=== PATIENT | female | born 1990 | race Two or more races ===

== ENCOUNTER 2023-10-09 03:55 | Inpatient (IN) | payer OTHER ==
[~2023-10-09] VITALS: Ht 170.2 cm; Wt 62.6 kg
[2023-10-09] MEDS ORDERED: RINGERS SOLUTION,LACTATED 1,000 ML IV SCH (04:15)
[2023-10-09] MEDS ORDERED: PRENATAL CAPLE1 EAC1 PO (06:01)
[2023-10-09] MEDS ORDERED: FOLIC ACID0.8 M1 PO (06:01)
[2023-10-09 06:21] LABS: PH,URINE 6.5 (5.0-8.0); URINE APPEARANCE Cloudy; URINE BILIRRUBIN Negative (NEGATIVE); URINE BLOOD Negative; URINE COLOR Yellow; URINE GLUCOSE Negative (NEGATIVE); URINE LEUKOCYTE Trace; URINE NITRATE Negative
[2023-10-09 06:24] LABS: URINE BACTERIA 613.6 uL (0.0-1933); URINE EPITHELIAL CELLS 54.1 uL (0.0-38.8); URINE RBC 13.5 uL (0.0-20.8); URINE WBC 40.6 uL (0.0-23.2)
[2023-10-09 06:26] LABS: HEMATOCRIT 28.2 % (36.0-45.00); HEMOGLOBIN 10.1 g/dL (12.0-15.00); MEAN CELL VOLUME 89.7 fL (80.00-100.00); MEAN CORPUSCULAR HEMOGLOBIN 32.2 pg (27.00-32.0); MEAN CORPUSCULAR HGB CONC 35.9 g/dl (32.0-36.0); PLATELET COUNT 170 K/uL (150-450); RED BLOOD COUNT 3.14 M/uL (4.00-6.00); RED CELL DISTRIBUTION WIDTH 12.4 % (11.5-14.5)
[2023-10-09 06:46] LABS: URINE PROTEIN 300 (NEGATIVE)
[2023-10-09 06:47] LABS: URINE YEAST FEW /hpf
[2023-10-09 06:59] LABS: ALBUMIN 2.7 gm/dL (3.4-5.0); BILIRUBIN TOTAL 0.25 mg/dL (0.3-1.2); CALCIUM 8.5 mg/dL (8.5-10.1); CREATININE SERUM 0.51 mg/dL (0.55-1.02); GFR 138.88; GLOBULINA 3.5 G/DL (2.4-3.5); POTASSIUM 3.74 mEq/L (3.5-5.1); TOTAL PROTEIN 6.2 gm/dL (6.4-8.2)
[2023-10-09] MEDS ORDERED: AMPICILLIN SODIUM 2,000 MG VIAL ONE (07:51)
[2023-10-09] MEDS ORDERED: BETAMETHASONE ACETATE,SOD PHOS 30 MG/5 ML ML ONE (07:53)
[2023-10-09 08:08] LABS: ABG PH 7.456 (7.35-7.45); ABG pCO2 30.2 mmHg (35-45); SaO2 98.2 %
[2023-10-09 08:09] LABS: BASE EXCESS -1.8 mmol/l; BICARBONATE 20.8 mmol/l (23-25); Tco2 21.8 mmol/l; allen test SATISFACTORY; o2 21 %; puncture site RADIAL LEFT
[2023-10-09] MEDS ORDERED: BETAMETHASONE ACETATE,SOD PHOS 30 MG/5 ML ML IM SCH (09:30)
[2023-10-09] MEDS ORDERED: AMPICILLIN SODIUM 2,000 MG in 0.9 % SODIUM CHLORIDE 100 ML IV SCH (09:30)
[2023-10-09 10:03] LABS: INR 0.95; PARTIAL THROMBOPLASTIN TIME 25.8 SECONDS (22.0-34.0)
[2023-10-10 08:59] LABS: URINE PROT QUANT 24HR 11.6 MG/DL
[2023-10-10 09:02] LABS: URINE PROT QUANT 24 HR 330.6 MG/24HR (42-225)
[2023-10-10] MEDS ORDERED: AMPICILLIN SODIUM 2,000 MG VIAL ONE (13:28)
[2023-10-11] MEDS ORDERED: TERCONAZOLE 45 GM TUBE VAG SCH (09:00)
[2023-10-12] MEDS ORDERED: AMPICILLIN SODIUM 2,000 MG VIAL ONE (20:33)
[2023-10-12] MEDS ORDERED: AMPICILLIN SODIUM 2,000 MG in 0.9 % SODIUM CHLORIDE 100 ML IV SCH (20:45)
[2023-10-12] MEDS ORDERED: AZITHROMYCIN 500 MG VIAL IV SCH (22:25)
[2023-10-12] MEDS ORDERED: AZITHROMYCIN 500 MG VIAL IV STA (22:25)
[2023-10-13] MEDS ORDERED: AMPICILLIN SODIUM 2,000 MG VIAL ONE (02:44)
[2023-10-13 06:56] LABS: HEMATOCRIT 27.6 % (36.0-45.00); HEMOGLOBIN 9.9 g/dL (12.0-15.00); MEAN CELL VOLUME 89.5 fL (80.00-100.00); MEAN CORPUSCULAR HGB CONC 35.8 g/dl (32.0-36.0); PLATELET COUNT 208 K/uL (150-450); RED BLOOD COUNT 3.09 M/uL (4.00-6.00); RED CELL DISTRIBUTION WIDTH 12.2 % (11.5-14.5)
[2023-10-13 07:10] LABS: ALBUMIN 2.4 gm/dL (3.4-5.0); BILIRUBIN TOTAL 0.3 mg/dL (0.3-1.2); CALCIUM 8.7 mg/dL (8.5-10.1); CREATININE SERUM 0.43 mg/dL (0.55-1.02); GFR 169.1; GLOBULINA 3.5 G/DL (2.4-3.5); POTASSIUM 3.64 mEq/L (3.5-5.1); TOTAL PROTEIN 5.9 gm/dL (6.4-8.2)
[2023-10-13] MEDS ORDERED: FERROUS SULFATE 325 MG TABLET.EC PO SCH (18:15)
[2023-10-15 10:59] LABS: PH,URINE 7.5 (5.0-8.0); URINE APPEARANCE Clear; URINE BILIRRUBIN Negative (NEGATIVE); URINE BLOOD Negative; URINE COLOR Yellow; URINE GLUCOSE Negative (NEGATIVE); URINE LEUKOCYTE Negative; URINE NITRATE Negative; URINE PROTEIN Negative (NEGATIVE); URINE UROBILINOGEN 0.2 E.U./dl
[2023-10-15 11:00] LABS: URINE EPITHELIAL CELLS 10.3 uL (0.0-38.8); URINE WBC 4.3 uL (0.0-23.2)
[2023-10-15 11:01] LABS: HEMATOCRIT 28.8 % (36.0-45.00); HEMOGLOBIN 10.2 g/dL (12.0-15.00); MEAN CELL VOLUME 88.8 fL (80.00-100.00); MEAN CORPUSCULAR HEMOGLOBIN 31.3 pg (27.00-32.0); MEAN CORPUSCULAR HGB CONC 35.2 g/dl (32.0-36.0); PLATELET COUNT 240 K/uL (150-450); RED BLOOD COUNT 3.25 M/uL (4.00-6.00); RED CELL DISTRIBUTION WIDTH 12.3 % (11.5-14.5)
[2023-10-15 11:12] LABS: URINE RBC 0.8 uL (0.0-20.8)
[2023-10-15 11:31] LABS: ALBUMIN 2.6 gm/dL (3.4-5.0); BILIRUBIN TOTAL 0.31 mg/dL (0.3-1.2); CREATININE SERUM 0.41 mg/dL (0.55-1.02); GFR 178.66; GLOBULINA 3.7 G/DL (2.4-3.5); POTASSIUM 4.15 mEq/L (3.5-5.1); TOTAL PROTEIN 6.3 gm/dL (6.4-8.2)
[2023-10-15 11:35] LABS: INR 0.97; PARTIAL THROMBOPLASTIN TIME 22.2 SECONDS (22.0-34.0); PROTHROMBIN TIME 10.2 SECONDS (9.0-11.5)
[2023-10-16] MEDS ORDERED: AZITHROMYCIN 500 MG TABLET PO ONE (16:00)
[2023-10-16] MEDS ORDERED: LABETALOL HCL 200 MG TABLET PO SCH (17:00)
[2023-10-16] MEDS ORDERED: AMOXICILLIN 500 MG CAPSULE PO SCH (21:00)
[2023-10-23 06:58] LABS: HEMATOCRIT 26.9 % (36.0-45.00); HEMOGLOBIN 9.6 g/dL (12.0-15.00); MEAN CELL VOLUME 90.2 fL (80.00-100.00); MEAN CORPUSCULAR HGB CONC 35.5 g/dl (32.0-36.0); PLATELET COUNT 197 K/uL (150-450); RED BLOOD COUNT 2.99 M/uL (4.00-6.00); RED CELL DISTRIBUTION WIDTH 13.3 % (11.5-14.5)
[2023-10-23 07:13] LABS: ALBUMIN 2.5 gm/dL (3.4-5.0); BILIRUBIN TOTAL 0.32 mg/dL (0.3-1.2); CALCIUM 8.6 mg/dL (8.5-10.1); CREATININE SERUM 0.37 mg/dL (0.55-1.02); GFR 201.13; GLOBULINA 3.3 G/DL (2.4-3.5); POTASSIUM 3.71 mEq/L (3.5-5.1); TOTAL PROTEIN 5.8 gm/dL (6.4-8.2)
[2023-10-25 10:21] LABS: HEMATOCRIT 29.5 % (36.0-45.00); HEMOGLOBIN 10.4 g/dL (12.0-15.00); MEAN CELL VOLUME 90.8 fL (80.00-100.00); MEAN CORPUSCULAR HGB CONC 35.2 g/dl (32.0-36.0); PLATELET COUNT 218 K/uL (150-450); RED BLOOD COUNT 3.25 M/uL (4.00-6.00); RED CELL DISTRIBUTION WIDTH 13.4 % (11.5-14.5)
[2023-10-25 10:36] LABS: INR 0.95; PARTIAL THROMBOPLASTIN TIME 21.7 SECONDS (22.0-34.0)
[2023-10-25 10:42] LABS: ALBUMIN 2.8 gm/dL (3.4-5.0); BILIRUBIN TOTAL 0.35 mg/dL (0.3-1.2); CALCIUM 9.4 mg/dL (8.5-10.1); CREATININE SERUM 0.4 mg/dL (0.55-1.02); GFR 183.82; GLOBULINA 3.4 G/DL (2.4-3.5); POTASSIUM 4.3 mEq/L (3.5-5.1); TOTAL PROTEIN 6.2 gm/dL (6.4-8.2)
[2023-10-25 11:33] LABS: URINE APPEARANCE Clear; URINE BILIRRUBIN Negative (NEGATIVE); URINE BLOOD Negative; URINE COLOR Yellow; URINE GLUCOSE Negative (NEGATIVE); URINE LEUKOCYTE Negative; URINE NITRATE Negative; URINE PROTEIN Negative (NEGATIVE); URINE UROBILINOGEN 0.2 E.U./dl
[2023-10-25 11:34] LABS: URINE BACTERIA 22.6 uL (0.0-1933); URINE EPITHELIAL CELLS 8.6 uL (0.0-38.8); URINE WBC 4.3 uL (0.0-23.2)
[2023-10-25 11:50] LABS: URINE RBC 0.8 uL (0.0-20.8)
[2023-10-26] MEDS ORDERED: DOCUSATE SODIUM 100MG CAP PO SCH (10:09)
[2023-10-30] MEDS ORDERED: DOCUSATE SODIUM 100MG CAP PO SCH (11:58)
[2023-10-30 13:56] LABS: HEMOGLOBIN 10.6 g/dL (12.0-15.00); MEAN CELL VOLUME 90.1 fL (80.00-100.00); MEAN CORPUSCULAR HEMOGLOBIN 31.8 pg (27.00-32.0); MEAN CORPUSCULAR HGB CONC 35.3 g/dl (32.0-36.0); PLATELET COUNT 195 K/uL (150-450); RED BLOOD COUNT 3.32 M/uL (4.00-6.00); RED CELL DISTRIBUTION WIDTH 14.2 % (11.5-14.5)
[2023-10-30 14:21] LABS: ALBUMIN 2.8 gm/dL (3.4-5.0); BILIRUBIN TOTAL 0.34 mg/dL (0.3-1.2); CALCIUM 9.2 mg/dL (8.5-10.1); CREATININE SERUM 0.37 mg/dL (0.55-1.02); GFR 201.13; GLOBULINA 3.7 G/DL (2.4-3.5); POTASSIUM 3.8 mEq/L (3.5-5.1); TOTAL PROTEIN 6.5 gm/dL (6.4-8.2)
[2023-10-30 14:24] LABS: INR 0.94; PARTIAL THROMBOPLASTIN TIME 23.3 SECONDS (22.0-34.0)
[2023-10-30 14:26] LABS: PROTHROMBIN TIME 9.9 SECONDS (9.0-11.5)
[2023-10-30 17:46] LABS: PH,URINE 7.5 (5.0-8.0); URINE APPEARANCE Clear; URINE BILIRRUBIN Negative (NEGATIVE); URINE COLOR Yellow; URINE GLUCOSE Negative (NEGATIVE); URINE LEUKOCYTE Negative; URINE NITRATE Negative; URINE PROTEIN Negative (NEGATIVE)
[2023-10-30 17:47] LABS: URINE BACTERIA 159.9 uL (0.0-1933); URINE EPITHELIAL CELLS 24.8 uL (0.0-38.8); URINE RBC 7.4 uL (0.0-20.8); URINE WBC 17.2 uL (0.0-23.2)
[2023-10-30 17:50] LABS: URINE BLOOD Traces
[2023-10-31] MEDS ORDERED: SOD FERRIC GLUC COMPLX/SUCROSE 62.5 MG/5 ML AMPUL IV SCH (10:26)
[2023-10-31] MEDS ORDERED: MULTIVIT INFUSN,ADULT 4,VIT K 10 ML VIAL IV SCH (10:31)
[2023-11-01] MEDS ORDERED: SOD FERRIC GLUC COMPLX/SUCROSE 62.5 MG/5 ML AMPUL IV SCH (09:00)
[2023-11-03] MEDS ORDERED: SOD FERRIC GLUC COMPLX/SUCROSE 62.5 MG/5 ML AMPUL IV ONE (09:15)
[2023-11-04] MEDS ORDERED: DOCUSATE SODIUM 100MG CAP PO SCH (09:00)
[2023-11-04 11:04] LABS: HEMATOCRIT 32.3 % (36.0-45.00); HEMOGLOBIN 11.1 g/dL (12.0-15.00); MEAN CELL VOLUME 90.9 fL (80.00-100.00); MEAN CORPUSCULAR HEMOGLOBIN 31.2 pg (27.00-32.0); MEAN CORPUSCULAR HGB CONC 34.3 g/dl (32.0-36.0); PLATELET COUNT 180 K/uL (150-450); RED BLOOD COUNT 3.56 M/uL (4.00-6.00); RED CELL DISTRIBUTION WIDTH 14.1 % (11.5-14.5)
[2023-11-04 11:22] LABS: ALBUMIN 2.7 gm/dL (3.4-5.0); BILIRUBIN TOTAL 0.26 mg/dL (0.3-1.2); CALCIUM 8.9 mg/dL (8.5-10.1); CREATININE SERUM 0.32 mg/dL (0.55-1.02); GFR 237.81; GLOBULINA 3.6 G/DL (2.4-3.5); POTASSIUM 3.44 mEq/L (3.5-5.1); TOTAL PROTEIN 6.3 gm/dL (6.4-8.2)
[2023-11-04 12:44] LABS: URINE APPEARANCE Clear; URINE BACTERIA 565.7 uL (0.0-1933); URINE BILIRRUBIN Negative (NEGATIVE); URINE BLOOD Small; URINE COLOR Yellow; URINE EPITHELIAL CELLS 32.7 uL (0.0-38.8); URINE GLUCOSE Negative (NEGATIVE); URINE LEUKOCYTE Negative; URINE NITRATE Negative; URINE PROTEIN Negative (NEGATIVE); URINE RBC 61.6 uL (0.0-20.8); URINE UROBILINOGEN 0.2 E.U./dl; URINE WBC 10.6 uL (0.0-23.2)
[2023-11-04 13:05] LABS: INR 0.97; PARTIAL THROMBOPLASTIN TIME 26.5 SECONDS (22.0-34.0); PROTHROMBIN TIME 10.2 SECONDS (9.0-11.5)
[2023-11-06] MEDS ORDERED: BETAMETHASONE ACETATE,SOD PHOS 30 MG/5 ML ML IM SCH (11:45)
[2023-11-07] MEDS ORDERED: DOCUSATE SODIUM 100MG CAP PO SCH (17:51)
[2023-11-09] MEDS ORDERED: OXYTOCIN 10 UNITS/ML VIAL ONE ×2 (06:25→11:14)
[2023-11-09] MEDS ORDERED: ERYTHROMYCIN BASE 3.5 GM OINT...G. OP ONE (06:25)
[2023-11-09] MEDS ORDERED: CEFAZOLIN SODIUM 1,000 MG VIAL ONE (08:20)
[2023-11-09] MEDS ORDERED: MORPHINE SULFATE 4 MG/ML VIAL IV PRN (09:00)
[2023-11-09] MEDS ORDERED: ONDANSETRON HCL 2 MG/ML VIAL IV PRN (09:00)
[2023-11-09] MEDS ORDERED: SIMETHICONE 125 MG CAPSULE PO SCH (09:00)
[2023-11-09] MEDS ORDERED: OXYTOCIN 1,000 ML IV SCH (09:00)
[2023-11-09] MEDS ORDERED: KETOROLAC TROMETHAMINE 30 MG VIAL IV PRN (09:15)
[2023-11-09] MEDS ORDERED: ONDANSETRON HCL 2 MG/ML VIAL ONE (10:07)
[2023-11-09 10:29] LABS: ABG PH 7.255 (7.35-7.45); ABG pCO2 58.1 mmHg (35-45)
[2023-11-09 10:30] LABS: ABG PO2 18.1 mmHg (80-100); BICARBONATE 25.2 mmol/l (23-25); SaO2 19.6 %; o2 21 %
[2023-11-09] MEDS ORDERED: MAGNESIUM SULFATE IN WATER 100 ML IV ONE (10:30)
[2023-11-09] MEDS ORDERED: MAGNESIUM SULFATE IN WATER 4 GM/100 ML PIGGYBACK IV ONE (10:44)
[2023-11-09] MEDS ORDERED: MAGNESIUM SULFATE IN WATER 500 ML IV SCH (10:45)
[2023-11-09] MEDS ORDERED: CEFAZOLIN SODIUM 1,000 MG VIAL IV ONE (12:45)
[2023-11-09] MEDS ORDERED: OXYTOCIN 10 UNITS/ML VIAL IV ONE (12:45)
[2023-11-09] MEDS ORDERED: ERYTHROMYCIN BASE 1 GM TUBE OP ONE (12:45)
[2023-11-09 15:19] LABS: HEMATOCRIT 31.5 % (36.0-45.00); MEAN CELL VOLUME 92.2 fL (80.00-100.00); MEAN CORPUSCULAR HEMOGLOBIN 32.3 pg (27.00-32.0); PLATELET COUNT 197 K/uL (150-450); RED BLOOD COUNT 3.41 M/uL (4.00-6.00); RED CELL DISTRIBUTION WIDTH 15.2 % (11.5-14.5)
[2023-11-09 15:46] LABS: ALBUMIN 2.6 gm/dL (3.4-5.0); BILIRUBIN TOTAL 0.36 mg/dL (0.3-1.2); CALCIUM 8.2 mg/dL (8.5-10.1); GFR 316.19; GLOBULINA 3.3 G/DL (2.4-3.5); POTASSIUM 3.47 mEq/L (3.5-5.1); TOTAL PROTEIN 5.9 gm/dL (6.4-8.2)
[2023-11-09 15:47] LABS: CREATININE SERUM 0.25 mg/dL (0.55-1.02)
[2023-11-09] MEDS ORDERED: ACETAMINOPHEN WITH CODEINE 1 UDTAB TABLET PO PRN (18:00)
[2023-11-09] MEDS ORDERED: KETOROLAC TROMETHAMINE 10 MG TABLET PO PRN (18:00)
[2023-11-10] MEDS ORDERED: NAPROXEN 500 MG TABLET PO SCH (09:17)
[2023-11-11] MEDS ORDERED: DOCUSATE SODIUM 100MG CAP PO SCH (17:00)
[2023-11-12] MEDS ORDERED: LABETALOL HCL200 MG PO (05:16)
[2023-11-12] MEDS ORDERED: NAPR500T14 PO (05:16)
[2023-11-12] MEDS ORDERED: COLACE100 MG PO (05:16)
== END 2023-11-12 11:41 | disposition home or self-care (01) | DRG 786 ==
LOC: OBS/DEL 03:55 → OB/GYN 07:21 → LDR 07:21 → OB/GYN 10-10 10:24 → LDR 11-09 11:49 → OB/GYN 11-09 14:49
PROVIDERS: Obstetrics & Gynecology; ADMIT Obstetrics & Gynecology; ATTEND Obstetrics & Gynecology
PROC: 4A1HXCZ Monitoring of Products of Conception, Cardiac Rate, External Approach (ICD-10-PCS; 2023-10-09)
PROC: BY4FZZZ Ultrasonography of Third Trimester, Single Fetus (ICD-10-PCS; 2023-10-09)
PROC: BU4CZZZ Ultrasonography of Uterus and Ovaries (ICD-10-PCS; 2023-10-09)
PROC: 8E0ZXY6 Isolation (ICD-10-PCS; 2023-10-10)
PROC: BY4FZZZ Ultrasonography of Third Trimester, Single Fetus (ICD-10-PCS; 2023-10-13)
PROC: BY4FZZZ Ultrasonography of Third Trimester, Single Fetus (ICD-10-PCS; 2023-10-21)
PROC: BY4FZZZ Ultrasonography of Third Trimester, Single Fetus (ICD-10-PCS; 2023-10-28)
PROC: BY4FZZZ Ultrasonography of Third Trimester, Single Fetus (ICD-10-PCS; 2023-11-03)
PROC: 3E033VJ Introduction of Other Hormone into Peripheral Vein, Percutaneous Approach (ICD-10-PCS; 2023-11-09)
PROC: 3E0P7VZ Introduction of Hormone into Female Reproductive, Via Natural or Artificial Opening (ICD-10-PCS; 2023-11-09)
PROC: 10D00Z1 Extraction of Products of Conception, Low, Open Approach (ICD-10-PCS; principal; 2023-11-09 07:00)
DX: O26.843 Uterine size-date discrepancy, third trimester (principal); U07.1 COVID-19; O98.52 Other viral diseases complicating childbirth; O36.8130 Decreased fetal movements, third trimester, not applicable or unspecified; O60.14X0 Preterm labor third trimester with preterm delivery third trimester, not applicable or unspecified; O99.02 Anemia complicating childbirth; D64.9 Anemia, unspecified; O14.04 Mild to moderate pre-eclampsia, complicating childbirth; O42.013 Preterm premature rupture of membranes, onset of labor within 24 hours of rupture, third trimester; Z37.0 Single live birth; Z3A.29 29 weeks gestation of pregnancy